=== PATIENT | female | born 1980 | race African-American/Black ===

== ENCOUNTER 2017-12-22 23:37 | Emergency (ER) | payer SELFPAY ==
--- NOTE | 2017-12-23 00:13 | ER Document Report ---
ED Medical Screen (RME) - General Chief Complaint: Flank Pain Stated Complaint: FLANK PAIN Time Seen by Provider: 12/23/17 00:12 Mode of Arrival: Ambulatory Information source: Patient TRAVEL OUTSIDE OF THE [place] IN LAST 30 DAYS: No - HPI Patient complains to provider of: Flank pain Notes: 12/23/17 00:12 Patient is a 37-year-old female presenting to the emergency room today complaining of 2 day history of bilateral flank pain with dysuria and hematuria as well as nausea and one episode of vomiting - Related Data Allergies/Adverse Reactions: amoxicillin Allergy (Verified 12/22/17 23:42) ciprofloxacin [From Cipro] Allergy (Verified 12/22/17 23:42) ibuprofen Allergy (Verified 12/22/17 23:42) NSAIDS (Non-Steroidal Anti-Inflamma Allergy (Verified 12/23/17 00:08) Penicillins Allergy (Verified 12/22/17 23:42) Physical Exam - Vital signs Vitals: Temp Pulse Resp BP Pulse Ox 99.0 F 105 H 16 148/114 H 98 12/22/17 23:45 12/22/17 23:45 12/22/17 23:45 12/22/17 23:45 12/22/17 23:45 Course - Vital Signs Vital signs: Temp Pulse Resp BP Pulse Ox 99.0 F 105 H 16 148/114 H 98 12/22/17 23:45 12/22/17 23:45 12/22/17 23:45 12/22/17 23:45 12/22/17 23:45
[2017-12-23 00:51] LABS: ABSOLUTE BASOPHILS # (AUTO) 0.1 10^3/uL (0.0-0.2); ABSOLUTE EOSINOPHILS # (AUTO) 0.4 10^3/uL (0.0-0.6); ABSOLUTE LYMPHOCYTES (AUTO) 1.6 10^3/uL (0.5-4.7); ABSOLUTE MONOCYTES (AUTO) 0.8 10^3/uL (0.1-1.4); ABSOLUTE NEUT (AUTO) 4.6 10^3/uL (1.7-8.2); BASOPHILS % (AUTO) 0.7 % (0-2); EOSINOPHILS % (AUTO) 4.9 % (0-6); HEMATOCRIT 42.6 % (36.0-47.0); HEMOGLOBIN 14.2 g/dL (12.0-15.5); LYMPHOCYTES % (AUTO) 21.4 % (13-45); MEAN CORPUSCULAR HEMOGLOBIN 29.4 pg (27.0-33.4); MEAN CORPUSCULAR HGB CONC 33.4 g/dL (32.0-36.0); MEAN CORPUSCULAR VOLUME 88 fl (80-97); MONOCYTES % (AUTO) 11.2 % (3-13); PLATELET COUNT 239 10^3/uL (150-450); RED BLOOD COUNT 4.82 10^6/uL (3.72-5.28); SEGMENTED NEUTROPHILS % (AUTO) 61.8 % (42-78); TOTAL CELLS COUNTED % (AUTO) 100 %; WHITE BLOOD COUNT 7.5 10^3/uL (4.0-10.5)
[2017-12-23 01:15] LABS: APPEARANCE,URINE CLOUDY; BILIRUBIN,URINE NEGATIVE (NEGATIVE); COLOR,URINE YELLOW; GLUCOSE, URINE NEGATIVE (NEGATIVE); KETONES,URINE NEGATIVE (NEGATIVE); LEUKOCYTE ESTERASE,URINE NEGATIVE (NEGATIVE); NITRITE,URINE NEGATIVE (NEGATIVE); PROTEIN,URINE 100 mg/dL (NEGATIVE); URINE SPECIFIC GRAVITY 1.021
[2017-12-23 01:16] LABS: ALANINE AMINOTRANSFERASE 19 U/L (9-52); ALBUMIN 4.6 g/dL (3.5-5.0); ALKALINE PHOSPHATASE 125 U/L (38-126); ANION GAP 14 (5-19); ASPARTATE AMINO TRANSFERASE 19 U/L (14-36); BILIRUBIN,DIRECT 0.3 mg/dL (0.0-0.4); BILIRUBIN,TOTAL 0.6 mg/dL (0.2-1.3); BLOOD UREA NITROGEN 12 mg/dL (7-20); CALCIUM 9.4 mg/dL (8.4-10.2); CARBON DIOXIDE 22 mmol/L (22-30); CHLORIDE 106 mmol/L (98-107); GLUCOSE 97 mg/dL (75-110); LIPASE 138.9 U/L (23-300); POTASSIUM 4.3 mmol/L (3.6-5.0); SODIUM 141.7 mmol/L (137-145); TOTAL PROTEIN 7.8 g/dL (6.3-8.2)
[2017-12-23 01:56] LABS: ABSOLUTE RETICS # 0.195 10^6/uL (0.028-0.122); RETICULOCYTE COUNT (AUTO) 4.06 % (0.66-2.85)
[2017-12-23] MEDS ORDERED: MORPHINE SULFATE 10 MG/ML INJ IV PRN (02:03)
[2017-12-23] MEDS ORDERED: NORMAL SALINE 1000 ML 1,000 ML IV ONE ×2 (02:03→04:56)
[2017-12-23] MEDS ORDERED: METOCLOPRAMIDE HCL INJ/PF 10 MG/2 ML SDV IV ONE (02:03)
[2017-12-23] MEDS ORDERED: CEFTRIAXONE INJ 1000 MG VIAL IV ONE (02:03)
--- NOTE | 2017-12-23 02:04 | ER Document Report ---
ED General - General Chief Complaint: Flank Pain Stated Complaint: FLANK PAIN Time Seen by Provider: 12/23/17 00:12 Mode of Arrival: Ambulatory Notes: Patient is a 37-year-old female with a past medical history of sickle cell trait , anxiety, morbid obesity who presents with complaints of 3 days of bilateral flank pain with associated urinary hesitancy and hematuria. Patient describes the pain as being located more toward her left flank and as a stabbing, moderate to severe pain that intermittently worsens. Nothing improves or worsens her symptoms. She denies any history of similar symptoms in the past. She notes that when the pain is severe it is associated with nausea and vomiting. She has not had fever but notes that she has had chills and body aches. She has not seen her general doctor regarding today's concerns. No prior history of kidney stones. TRAVEL OUTSIDE OF THE [place] IN LAST 30 DAYS: No - Related Data Allergies/Adverse Reactions: amoxicillin Allergy (Verified 12/22/17 23:42) ciprofloxacin [From Cipro] Allergy (Verified 12/22/17 23:42) ibuprofen Allergy (Verified 12/22/17 23:42) NSAIDS (Non-Steroidal Anti-Inflamma Allergy (Verified 12/23/17 00:08) Penicillins Allergy (Verified 12/22/17 23:42) Past Medical History - General Information source: Patient - Social History Smoking Status: Never Smoker Frequency of alcohol use: special occasions Drug Abuse: None Lives with: Spouse/Significant other Family History: Reviewed & Not Pertinent Patient has suicidal ideation: No Patient has homicidal ideation: No Renal/ Medical History: Denies: Hx Peritoneal Dialysis Review of Systems - Review of Systems Notes: Constitutional: Negative for fever. HENT: Negative for sore throat. Eyes: Negative for visual changes. Cardiovascular: Negative for chest pain. Respiratory: Negative for shortness of breath. Gastrointestinal: Positive for nausea, vomiting and bilateral flank pain Genitourinary: Positive for dysuria. Musculoskeletal: Negative for back pain. Skin: Negative for rash. Neurological: Negative for headaches, weakness or numbness. 10 point ROS negative except as marked above and in HPI. Physical Exam - Vital signs Vitals: Temp Pulse Resp BP Pulse Ox 99.0 F 105 H 16 148/114 H 98 12/22/17 23:45 12/22/17 23:45 12/22/17 23:45 12/22/17 23:45 12/22/17 23:45 Interpretation: Hypertensive, Tachycardic Notes: PHYSICAL EXAMINATION: GENERAL: Well-appearing, well-nourished and in no acute distress. HEAD: Atraumatic, normocephalic. EYES: Pupils equal round and reactive to light, extraocular movements intact, sclera anicteric, conjunctiva are normal. ENT: nares patent, oropharynx clear without exudates. Moderately dry mucous membranes. NECK: Normal range of motion, supple without lymphadenopathy LUNGS: Breath sounds clear to auscultation bilaterally and equal. No wheezes rales or rhonchi. HEART: Regular tachycardia without murmurs ABDOMEN: Soft, left lower abdominal pain as well as left flank tenderness to palpation. Mild right flank tenderness to palpation. No other localized areas of abdominal tenderness., normoactive bowel sounds. No guarding, no rebound. No masses appreciated. EXTREMITIES: Normal range of motion, no pitting or edema. No cyanosis. NEUROLOGICAL: No focal neurological deficits. Moves all extremities spontaneously and on command. PSYCH: Normal mood, normal affect. SKIN: Warm, Dry, normal turgor, no rashes or lesions noted. Course - Re-evaluation Re-evalutation: 12/23/17 02:04 Presentation is most consistent with acute pyelonephritis. Laboratories do demonstrate a large amount of white blood cells in the urine as well as bacteria. Patient has had constitutional symptoms at home. CVA tenderness is present on exam. Given blood in the urine and patient's degree of reported pain a CT the abdomen pelvis was obtained to exclude an associated nephrolithiasis which is otherwise negative. The remainder laboratories are relatively unremarkable without evidence of renal dysfunction. I do not suspect an acute appendicitis, biliary pathology, pancreatitis, intra-abdominal abscess, or tubo-ovarian abscess based on history and examination. Patient has been given a dose of IV ceftriaxone and a liter of fluids. Patient is able to tolerate oral intake without difficulty. Will be discharged home on 7 day course of cephalexin. A urine culture has been sent. At this time will discharge with return precautions and follow-up recommendations. Verbal discharge instructions given a the bedside and opportunity for questions given. Medication warnings reviewed. Patient is in agreement with this plan and has verbalized understanding of return precautions and the need for primary care follow-up in the next 24-72 hours. - Vital Signs Vital signs: Temp Pulse Resp BP Pulse Ox 99.0 F 105 H 16 148/114 H 98 12/22/17 23:45 12/22/17 23:45 12/22/17 23:45 12/22/17 23:45 12/22/17 23:45 - Laboratory Result Diagrams: 12/23/17 00:25 12/23/17 00:25 Laboratory results interpreted by me: 12/23/17 12/23/17 00:25 00:25 Retic Count (auto) 4.06 H Absolute Retic 0.195 H Urine Protein 100 H Urine Blood LARGE H Urine Urobilinogen 2.0 H Discharge - Discharge Clinical Impression: Pyelonephritis, Bilateral flank pain, Dehydration Nausea and vomiting Qualifiers: Vomiting type: unspecified Vomiting Intractability: non-intractable Qualified Code(s): R11.2 - Nausea with vomiting, unspecified Condition: Good Disposition: HOME, SELF-CARE Additional Instructions: You have been diagnosed with a condition called pyelonephritis which is an infection involving your kidneys and bladder. You have been given a dose of antibiotics here in the emergency department to help begin to treat this infection. Your also being sent home on antibiotics. Please start taking these later on today when you fill the prescription. Complete the course even if you feel better. Please return if you have persistent vomiting, pass out, have worsening pain, become unable to tolerate fluids, or have any other symptoms that are concerning to you. Please follow-up with your primary care physician in the next 24-48 hours. Prescriptions: Cephalexin Monohydrate [Keflex 500 mg Capsule] 500 mg PO Q6H 7 Days capsule
[2017-12-23] MEDS ORDERED: DIPHENHYDRAMINE HCL 50 MG/ML VIAL IV ONE ×3 (03:08→07:30)
[2017-12-23] MEDS ORDERED: LIDOCAINE 1% INJ-PF (10 MG/ML) 30 ML SDV INJ ONE (03:32)
[2017-12-23] MEDS ORDERED: CEFTRIAXONE INJ 1000 MG VIAL IM ONE (03:32)
[2017-12-23] MEDS ORDERED: DIPHENHYDRAMINE HCL 50 MG/ML VIAL IM ONE (03:32)
[2017-12-23] MEDS ORDERED: PROMETHAZINE HCL INJ 50 MG/1 ML VIAL IM ONE (03:35)
[2017-12-23] MEDS ORDERED: HYDROMORPHONE HCL INJ/PF 2 MG/ML AMPULE IM ONE (03:36)
[2017-12-23] MEDS ORDERED: PROMETHAZINE HCL INJ 25 MG/1 ML VIAL ONE (03:47)
--- NOTE | 2017-12-23 03:57 | RADIOLOGY REPORT (SQ) ---
CT abdomen and pelvis without contrast on 12/23/2017 at 3:27 AM CLINICAL INDICATION: Left-sided back pain, possible infected stone TECHNIQUE: Multiple axial images are obtained throughout the abdomen and pelvis without the administration of contrast. This exam was performed according to our departmental dose-optimization program, which includes automated exposure control, adjustment of the mA and/or kV according to patient size and/or use of iterative reconstruction technique. Total DLP is 1079.87 mGy*cm. COMPARISON: None FINDINGS: Abdomen: There is elevation of the right hemidiaphragm. The lung bases are clear. The patient is status post cholecystectomy. There are no renal or ureteral stones and no hydronephrosis. The unenhanced solid abdominal organs are unremarkable. There is no abdominal adenopathy. There is no free fluid or free air within the abdomen. The abdominal portion of the GI tract is unremarkable. Pelvis: The patient appears to be status post appendectomy. Small amount of free fluid in the pelvis is likely physiologic. Pelvic organs appear unremarkable by CT. There is no pelvic adenopathy. The pelvic portion of the GI tract is unremarkable. No acute bony abnormality is noted. IMPRESSION: No acute abnormality.
[2017-12-23] MEDS ORDERED: HYDROCODONE/ACETAMINOPHEN 5-325 MG (6 TAB/ER DISP) PO PRN (04:01)
[2017-12-23] MEDS ORDERED: ONDANSETRON ODT 4 MG TAB (6 TAB/ER DISP) PO PRN (04:01)
[2017-12-23] MEDS ORDERED: ONDANSETRON HCL INJ/PF 4 MG/2 ML SDV IV ONE (04:55)
[2017-12-23] MEDS ORDERED: HALOPERIDOL LACTATE INJ 5 MG/1 ML VIAL IV ONE (04:55)
[2017-12-23] MEDS ORDERED: HYDROMORPHONE HCL INJ/PF 2 MG/ML AMPULE IV ONE ×2 (04:55→07:13)
[2017-12-23] MEDS ORDERED: PROMETHAZINE HCL INJ 50 MG/1 ML VIAL IM PRN (07:13)
[2017-12-23 11:17] VITALS: BP 154/76
== END 2017-12-23 11:16 | disposition home or self-care (01) ==
LOC: ER 23:37
DX: N12 Tubulo-interstitial nephritis, not specified as acute or chronic (principal); R31.9 Hematuria, unspecified; E86.0 Dehydration; R11.2 Nausea with vomiting, unspecified; D57.3 Sickle-cell trait; R68.83 Chills (without fever); R00.0 Tachycardia, unspecified; Z88.0 Allergy status to penicillin; Z88.1 Allergy status to other antibiotic agents; Z88.6 Allergy status to analgesic agent; Z88.8 Allergy status to other drugs, medicaments and biological substances
CPT/HCPCS: 96376; 99284; 96372; 96361; 96375; 96365; 36415; 87086; 83690; 84703; 85025; 85045; 80053; 81001; 74176; J1200; J1630; J3490; J2765; J2270; J1170; J2550 ×2; J0696; J2405; J7030